=== PATIENT | female | born 1970 | race African-American/Black ===

== ENCOUNTER 2016-12-24 00:11 | Emergency (ER) | payer MEDICAID, OTHER ==
[~2016-12-24] VITALS: Ht 165.1 cm; Wt 79.5 kg
[~2016-12-24 00:11] MED LIST: AMLO2.5T45 PO; ARIP30TA2 PO; ASPI-1159 PO; BECL8.7A6 IH; BENA20TA3 PO; ESCI10TA54 PO; FLUT16SP15 NS; HYDR-2510 PO; HYDR-3992 PO; LORA10TA7 PO; OMEP40CA34 PO
[2016-12-24 00:15] VITALS: BP 150/91
[2016-12-24] MEDS ORDERED: SODIUM CHLORIDE 0.9% 1,000 ML IV ONE (00:34)
[2016-12-24] MEDS ORDERED: MORPHINE SULFATE 4 MG/ML CPJ (NOT FOR IM USE) IV STA (00:34)
[2016-12-24] MEDS ORDERED: ONDANSETRON HCL 4MG/2ML VIAL IV STA (00:34)
[2016-12-24] MEDS ORDERED: FAMOTIDINE 20MG/2ML VIAL IV STA (00:34)
[2016-12-24 01:01] LABS: EOSINOPHILS % 3.1 % (0.0-5.0); HEMATOCRIT. 41.6 % (36.0-48.0); LYMPHOCYTES % 39.3 % (20.0-50.0); MEAN CORPUSCULAR HEMOGLOBIN 30.7 pg (28.0-32.0); MONOCYTES % 5.3 % (2.0-8.0); NEUTROPHILS % 51.3 % (40.0-76.0); PLATELET 362 x1000/uL (130-400); RED BLOOD CELL COUNT 4.57 mill/uL (4.2-5.4); RED CELL DISTRIBUTION WIDTH 14.2 % (11.6-14.6)
[2016-12-24 01:12] LABS: CARBON DIOXIDE 29 mEq/L (21-32); CHLORIDE 104 mEq/L (98-107); ETHANOL BLOOD 24 mg/dL; TROPONIN I < 0.02 ng/mL (0.00-0.04)
[2016-12-24 01:14] LABS: PROTHROMBIN TIME 10.5 sec (9.4-11.6)
== END 2016-12-24 00:55 | disposition left against medical advice (07) ==
LOC: ER 00:16
DX: R53.1 Weakness (principal); R10.9 Unspecified abdominal pain; R50.9 Fever, unspecified; R11.2 Nausea with vomiting, unspecified; I10 Essential (primary) hypertension; F17.200 Nicotine dependence, unspecified, uncomplicated; Z79.82 Long term (current) use of aspirin; Z90.710 Acquired absence of both cervix and uterus; Z91.018 Allergy to other foods
CPT/HCPCS: 36415; 80053; 83605; 83690; 83880; 84484; 85025; 85610; 99284; G0482; J7030

== ENCOUNTER 2017-01-16 05:10 | Emergency (ER) | payer OTHER ==
[~2017-01-16] VITALS: Ht 162.6 cm; Wt 82.0 kg
[2017-01-16] MEDS ORDERED: SODIUM CHLORIDE 0.9% 1,000 ML IV ONE ×2 (05:59→08:02)
[2017-01-16] MEDS ORDERED: ASPIRIN 81MG TABLET PO ONE (06:00)
[2017-01-16] MEDS ORDERED: IPRATROPIUM/ALBUTEROL 0.5-3(2.5)MG/3ML NEB HHN ONE (06:00)
[2017-01-16 06:32] LABS: EOSINOPHILS % 4.4 % (0.0-5.0); HEMATOCRIT. 37.9 % (36.0-48.0); HEMOGLOBIN. 12.8 g/dL (12.0-16.0); LYMPHOCYTES % 45.1 % (20.0-50.0); MEAN CORPUSCULAR HEMOGLOBIN 30.8 pg (28.0-32.0); MEAN CORPUSCULAR VOLUME 91.3 fL (81.0-99.0); MEAN PLATELET VOLUME 8.1 fl (7.4-10.4); MONOCYTES % 7.4 % (2.0-8.0); NEUTROPHILS % 42.1 % (40.0-76.0); PLATELET 296 x1000/uL (130-400); RED BLOOD CELL COUNT 4.15 mill/uL (4.2-5.4); RED CELL DISTRIBUTION WIDTH 14.2 % (11.6-14.6)
[2017-01-16 06:38] LABS: CARBON DIOXIDE 27 mEq/L (21-32); CHLORIDE 104 mEq/L (98-107); TROPONIN I < 0.02 ng/mL (0.00-0.04)
[2017-01-16] MEDS ORDERED: POTASSIUM CHLORIDE 20MEQ TABLET SR PO ONE (08:15)
[2017-01-16] MEDS ORDERED: ACETAMINOPHEN 325MG TABLET PO ONE (08:15)
[2017-01-16 08:25] LABS: CLARITY URINE CLEAR (CLEAR); COLOR URINE YELLOW (YELLOW); GLUCOSE URINE NEGATIVE (NEGATIVE); KETONES URINE TRACE (NEGATIVE); LEUKOCYTE ESTERASE URINE TRACE (NEGATIVE); NITRITE URINE NEGATIVE (NEGATIVE); OCCULT BLOOD URINE NEGATIVE (NEGATIVE); PROTEIN URINE NEGATIVE (NEGATIVE)
[2017-01-16 10:01] VITALS: BP 144/98
== END 2017-01-16 10:11 | disposition home or self-care (01) ==
LOC: ER 05:17
DX: E87.6 Hypokalemia (principal); R55 Syncope and collapse; J45.909 Unspecified asthma, uncomplicated; I10 Essential (primary) hypertension; F41.9 Anxiety disorder, unspecified; F17.200 Nicotine dependence, unspecified, uncomplicated; Z91.018 Allergy to other foods; Z79.82 Long term (current) use of aspirin
CPT/HCPCS: 36415; 71010; 80053; 81001; 82962; 83690; 83880; 84484; 85025; 85610; 85730; 93005; 96360; 96361; 99285; J7030; Z7610; J7620

== ENCOUNTER 2017-02-26 04:15 | Emergency (ER) | payer OTHER ==
[~2017-02-26] VITALS: Ht 170.2 cm; Wt 82.0 kg
[2017-02-26 04:37] VITALS: BP 180/122
[2017-02-26] MEDS ORDERED: LIDOCAINE HCL 1% 20ML VIAL (Pyxis) INJ INFIL ONE (06:30)
[2017-02-26] MEDS ORDERED: TRAMADOL 50MG TABLET PO ONE (06:30)
== END 2017-02-26 06:40 | disposition left against medical advice (07) ==
LOC: ER 04:15
DX: S61.412A Laceration without foreign body of left hand, initial encounter (principal); F17.200 Nicotine dependence, unspecified, uncomplicated; I10 Essential (primary) hypertension; F19.10 Other psychoactive substance abuse, uncomplicated; Z90.710 Acquired absence of both cervix and uterus; Z79.82 Long term (current) use of aspirin; Z91.018 Allergy to other foods; W25.XXXA Contact with sharp glass, initial encounter; Y93.89 Activity, other specified; Y92.89 Other specified places as the place of occurrence of the external cause; Y99.8 Other external cause status
CPT/HCPCS: 99281

== ENCOUNTER 2017-08-24 03:52 | Emergency (ER) | payer MEDICAID, OTHER ==
[~2017-08-24] VITALS: Ht 162.6 cm; Wt 100.0 kg
[2017-08-24] MEDS ORDERED: LORAZEPAM 1MG TABLET PO ONE (04:30)
[2017-08-24] MEDS ORDERED: IBUPROFEN 600MG TABLET PO ONE (04:30)
[2017-08-24 05:15] VITALS: BP 141/80
== END 2017-08-24 05:23 | disposition home or self-care (01) ==
LOC: ER 03:53
DX: J45.901 Unspecified asthma with (acute) exacerbation (principal); F41.9 Anxiety disorder, unspecified; K21.9 Gastro-esophageal reflux disease without esophagitis; E78.00 Pure hypercholesterolemia, unspecified; I10 Essential (primary) hypertension; Z90.710 Acquired absence of both cervix and uterus; Z79.82 Long term (current) use of aspirin; Z91.018 Allergy to other foods
CPT/HCPCS: 99283